=== PATIENT | male | born 1975 | race Caucasian/White ===

== ENCOUNTER 2016-07-25 04:53 | Observation (INO) | payer BC ==
[2016-07-25] MEDS ORDERED: Ondansetron 4 MG/2 ML SDV IVPUSH ONE (05:08)
[2016-07-25] MEDS ORDERED: Sodium Chloride 0.9% 1,000 ML IV ONE (05:09)
[2016-07-25] MEDS ORDERED: Ketorolac 30 MG/ML SDV IVPUSH ONE (05:09)
--- NOTE | 2016-07-25 05:23 | EDM.PDOC ---
ED HPI Trauma - General Chief Complaint: Lower Extremity Injury/Pain Stated Complaint: PAIN IN RIGHT FOOT Time Seen by Provider: 07/25/16 05:05 - History of Present Illness INITIAL COMMENTS - FREE TEXT/NARRATIVE: HISTORY AND PHYSICAL: History of present illness: Patient's a 40-year-old white male patient rates her pain swelling and redness to his right foot with red streaking proximal leg he denies fever chills he denies any known trauma denies nausea vomiting or other concerns Review of systems: As per history of present illness and below otherwise all systems reviewed and negative. Past medical history: As per history of present illness and as reviewed below otherwise noncontributory. Surgical history: As per history of present illness and as reviewed below otherwise noncontributory. Social history: No reported history of drug or alcohol abuse. Family history: As per history of present illness and as reviewed below otherwise noncontributory. Physical exam: HEENT: Atraumatic, normocephalic, pupils reactive, negative for conjunctival pallor or scleral icterus, mucous membranes moist, throat clear, neck supple, nontender, trachea midline. Lungs: Clear to auscultation, breath sounds equal bilaterally, chest nontender. Heart: S1S2, regular, negative for clicks, rubs, or JVD. Abdomen: Soft, nondistended, nontender. Negative for masses or hepatosplenomegaly. Negative for costovertebral tenderness. Pelvis: Stable nontender. Genitourinary: Deferred. Rectal: Deferred. Extremities: Patient's moderate swelling and erythema over the dorsal aspect of his right foot with some descending lymphangitis noted proximally to be distal third of his right leg neurovascular exam CMS is unremarkable this is warm to the touch Neuro: Awake, alert, oriented. Cranial nerves II through XII unremarkable. Cerebellum unremarkable. Motor and sensory unremarkable throughout. Exam nonfocal. Diagnostics: CBC CMP blood culture x2 x-ray right foot/tib-fib Therapeutics: Normal saline 1 L bolus vancomycin 1 g IV Impression: #1 cellulitis with ascending lymphangitis Definitive disposition and diagnosis as appropriate pending reevaluation and review of above. Allergies/ADRs: Allergies No Known Allergies Allergy (Verified 07/25/16 04:57) Home Medications: Ambulatory Orders . [No Known Home Meds] 07/25/16 [Confirmed 07/25/16] Past Medical History HEENT History: Reports: None Cardiovascular History: Reports: None Respiratory History: Reports: None Neurological History: Reports: None - Infectious Disease History Infectious Disease History: Reports: None - Past Surgical History HEENT Surgical History: Reports: None Cardiovascular Surgical History: Reports: None Social & Family History - Tobacco Use Smoking Status *Q: Never Smoker Second Hand Smoke Exposure: No Review of Systems - Review of Systems Review Of Systems: ROS reveals no pertinent complaints other than HPI. Trauma Exam - Physical Exam Exam: See Below (See dictation) Course - Vital Signs Last Recorded V/S: Last Vital Signs Temp 36.4 C 07/25/16 04:57 Pulse 89 07/25/16 06:00 Resp 17 07/25/16 06:00 BP 119/78 07/25/16 06:00 Pulse Ox 96 07/25/16 06:00 - Orders/Labs/Meds Orders: Active Orders 24 hr Category Date Time Status Foot Comp Min 3V Rt [CR] Stat Exams 07/25/16 05:05 Taken Tibia Fibula Rt [CR] Stat Exams 07/25/16 05:06 Taken CULTURE BLOOD [BC] Stat Lab 07/25/16 05:15 Received CULTURE BLOOD [BC] Stat Lab 07/25/16 05:30 Received Vancomycin [Vancocin] 1 gm Med 07/25/16 05:08 Active Sodium Chloride 0.9% [Normal Saline] 250 ml IV ONETIME Medication Orders Vancomycin HCl 1 gm/ Sodium (Chloride) 250 mls @ 166 mls/hr IV ONETIME ONE Stop: 07/25/16 06:38 Last Admin: 07/25/16 05:30 Dose: 166 mls/hr Labs: Laboratory Tests 07/25/16 07/25/16 Range/Units 05:16 05:16 WBC 9.48 (4.0-11.0) K/uL RBC 4.48 L (4.50-5.90) M/uL Hgb 13.4 (13.0-17.0) g/dL Hct 39.9 (38.0-50.0) % MCV 89.1 (80.0-98.0) fL MCH 29.9 (27.0-32.0) pg MCHC 33.6 (31.0-37.0) g/dL RDW Std Deviation 39.8 (28.0-62.0) fl RDW Coeff of Keiko 13 (11.0-15.0) % Plt Count 155 (150-400) K/uL MPV 10.10 (7.40-12.00) fL Neut % (Auto) 73.3 (48.0-80.0) % Lymph % (Auto) 12.9 L (16.0-40.0) % [place] % (Auto) 13.2 (0.0-15.0) % Eos % (Auto) 0.4 (0.0-7.0) % Baso % (Auto) 0.2 (0.0-1.5) % Neut # 7.0 H (1.4-5.7) K/uL Lymph # 1.2 (0.6-2.4) K/uL [place] # 1.3 H (0.0-0.8) K/uL Eos # 0.0 (0.0-0.7) K/uL Baso # 0.0 (0.0-0.1) K/uL Nucleated RBC % 0.0 /100WBC Nucleated RBCs # 0 K/uL Sodium 137 (136-146) mmol/L Potassium 3.8 (3.5-5.1) mmol/L Chloride 103 (98-110) mmol/L Carbon Dioxide 23 (21-31) mmol/L BUN 9 (6.0-23.0) mg/dL Creatinine 1.0 (0.6-1.5) mg/dL Est Cr Clr Drug Dosing 109.93 mL/min Estimated GFR (MDRD) > 60.0 ml/min Glucose 124 H (60-110) mg/dL Uric Acid 5.1 (2.1-7.4) mg/dL Calcium 9.1 (8.8-10.8) mg/dL Total Bilirubin 0.9 (0.1-1.5) mg/dL AST 33 (5-40) IU/L ALT 36 (8-54) IU/L Alkaline Phosphatase 78 (40-150) Total Protein 8.0 (6.0-8.0) g/dL Albumin 4.0 (3.5-5.0) g/dL Globulin 4.0 H (2.0-3.5) g/dL Albumin/Globulin Ratio 1.0 L (1.3-2.8) Meds: Medications Generic Name Dose Route Start Last Admin Trade Name Freq PRN Reason Stop Dose Admin Vancomycin HCl 1 gm/ Sodium 250 mls @ 166 mls/hr 07/25/16 05:08 07/25/16 05: 30 Chloride IV 07/25/16 06:38 166 mls/hr ONETIME ONE Administration Discontinued Medications Generic Name Dose Route Start Last Admin Trade Name Shelby PRN Reason Stop Dose Admin Sodium Chloride 1,000 mls @ 999 mls/hr 07/25/16 05:09 07/25/16 05:24 Normal Saline IV 07/25/16 06:09 999 mls/hr .Bolus ONE Administration Ketorolac Tromethamine 30 mg 07/25/16 05:09 07/25/16 05:26 Toradol IVPUSH 07/25/16 05:10 30 mg ONETIME ONE Administration Ondansetron HCl 4 mg 07/25/16 05:08 07/25/16 05:26 Zofran IVPUSH 07/25/16 05:09 4 mg ONETIME ONE Administration Departure - Departure Time of Disposition: 06:12 Disposition: Admitted As Inpatient 68 Condition: good Clinical Impression: Cellulitis, Ascending lymphangitis Forms: ED Department Discharge - My Orders Last 24 Hours: My Active Orders 07/25/16 05:05 Foot Comp Min 3V Rt [CR] Stat 07/25/16 05:06 Tibia Fibula Rt [CR] Stat 07/25/16 05:08 Vancomycin [Vancocin] 1 gm Sodium Chloride 0.9% [Normal Saline] 250 ml IV ONETIME 07/25/16 05:15 CULTURE BLOOD [BC] Stat 07/25/16 05:30 CULTURE BLOOD [BC] Stat - Assessment/Plan Last 24 Hours: My Active Orders 07/25/16 05:05 Foot Comp Min 3V Rt [CR] Stat 07/25/16 05:06 Tibia Fibula Rt [CR] Stat 07/25/16 05:08 Vancomycin [Vancocin] 1 gm Sodium Chloride 0.9% [Normal Saline] 250 ml IV ONETIME 07/25/16 05:15 CULTURE BLOOD [BC] Stat 07/25/16 05:30 CULTURE BLOOD [BC] Stat
[2016-07-25 05:46] LABS: CHLORIDE,CL 103 mmol/L (98-110); SODIUM,NA 137 mmol/L (136-146)
--- NOTE | 2016-07-25 11:06 | PCM.HP ---
H&P History of Present Illness - General Admit Problem/Dx: Admission Diagnosis/Problem Admission Diagnosis/Problem Cellulitis - History of Present Illness Initial Comments - Free Text/Narative: 40 yo male who presents with a two day history of redness and swelling of the dorsum of his right foot. He reports that he has been fatigued from extra hours at work. He wears slip on boots and reports his socks are always dry. He denies any resent trauma or foot pain. He was evaluated in the ED. Foot x- rays report no acute osseous injuries. ED physician referred for observation. Right Feet Pain Score (Numeric/FACES): 3 - Related Data Allergies/Adverse Reactions: Allergies Allergy/AdvReac Type Severity Reaction Status Date / Time No Known Allergies Allergy Verified 07/25/16 04:57 Home Medications: Home Meds . [No Known Home Meds] 07/25/16 [History] Past Medical History HEENT History: Reports: None Cardiovascular History: Reports: None Respiratory History: Reports: None Neurological History: Reports: None - Infectious Disease History Infectious Disease History: Reports: None - Past Surgical History HEENT Surgical History: Reports: None Cardiovascular Surgical History: Reports: None Social & Family History - Tobacco Use Smoking Status *Q: Never Smoker Second Hand Smoke Exposure: No H&P Review of Systems - Review of Systems: Review Of Systems: See Below General: Reports: no symptoms HEENT: Reports: no symptoms Pulmonary: Reports: no symptoms Cardiovascular: Reports: no symptoms Gastrointestinal: Reports: No symptoms Genitourinary: Reports: no symptoms Musculoskeletal: Reports: no symptoms Skin: Reports: no symptoms Psychiatric: Reports: no symptoms Neurological: Reports: no symptoms Hematologic/Lymphatic: Reports: no symptoms Immunologic: Reports: no symptoms Exam - Exam Exam: See Below - Vital Signs Vital Signs: Last Vital Signs Temp 36.3 C 07/25/16 06:38 Pulse 78 07/25/16 08:08 Resp 18 07/25/16 08:08 BP 116/78 07/25/16 08:08 Pulse Ox 98 07/25/16 08:08 Weight: 125.2 kg - Exam General: alert, oriented HEENT: Conjunctiva clear, Mucosa moist & pink Lungs: Clear to auscultation, Normal respiratory effort Cardiovascular: regular rate, regular rhythm Abdomen: normal bowel sounds, soft Extremities: other (+1 edema of dorsum of foot with erythema extending to above anterior ankle. tattoo of leg makes it difficult to determine proximal border of erythema) - Patient Data Result Diagrams: 07/25/16 05:16 07/25/16 05:16 *Q Meaningful Use (ADM) - VTE *Q VTE Criteria *Q: - Stroke *Q Stroke Criteria *Q: - AMI *Q AMI Criteria *Q: Problem List Initiated/Reviewed/Updated: Yes Orders Last 24hrs: Active Orders 24 hr Category Date Time Status Intake and Output [RC] QSHIFT Care 07/25/16 10:59 Ordered Oxygen Therapy [RC] PRN Care 07/25/16 10:59 Ordered Up ad Ev [RC] ASDIRECTED Care 07/25/16 10:59 Ordered VTE/DVT Education [RC] PER UNIT ROUTINE Care 07/25/16 10:59 Ordered Vital Signs [RC] Q4H Care 07/25/16 10:59 Ordered Regular Diet [DIET] Diet 07/25/16 Breakfast Active Venous Doppler Lwr Ext Rt [US] Routine Exams 07/25/16 10:58 Ordered BASIC METABOLIC PANEL,BMP [CHEM] AM Lab 07/26/16 05:11 Ordered CBC W/O DIFF,HEMOGRAM [HEME] AM Lab 07/26/16 05:11 Ordered Enoxaparin [Lovenox] Med 07/26/16 09:00 Ordered 40 mg SUBCUT DAILY Vancomycin Pharmacy to Dose [Pharmacy to Dose - Med 07/25/16 11:00 Ordered Vancomycin] 1 dose .XX ASDIRECTED Resuscitation Status Routine Resus Stat 07/25/16 10:59 Ordered Medication Orders Vancomycin HCl (Pharmacy To Dose - Vancomycin) 1 dose .XX ASDIRECTED MARTHA Assessment/Plan Comment:: 40 yo male admitted for right foot cellulitis. Treating with vancomycin
[2016-07-26 07:05] LABS: CHLORIDE,CL 104 mmol/L (98-110); SODIUM,NA 139 mmol/L (136-146)
[2016-07-26] MEDS ORDERED: Enoxaparin 40 MG/0.4 ML Syringe SUBCUT SCH (09:00)
[2016-07-26 11:47] VITALS: BP 112/69
--- NOTE | 2016-07-26 11:55 | PCM.DCSUM1 ---
Discharge Summary - Discharge Data Discharge Date: 07/26/16 Discharge Disposition: Home, Self-Care 01 Condition: Good - Patient Summary/Data Hospital Course: 40 yo male admitted with right foot cellulitis. He was treated with vancomycin and watched overnight. This morning he has improvement in the erythema and edema of the foot. Foot x-ray and leg dopplars were negative. Today he is requesting discharge. He was sent home with Bactrim DS BID for five days. He wants to schedule follow up himself for his PCP at home for later this week. - Patient Instructions Diet: Regular Diet as Tolerated - Discharge Plan Prescriptions/Med Rec: Sulfamethoxazole/Trimethoprim [Bactrim Ds Tablet] 1 each PO BID #10 tablet Home Medications: Home Meds Sulfamethoxazole/Trimethoprim [Bactrim Ds Tablet] 1 each PO BID #10 tablet 07/26 [Rx] Referrals: PCP,None [Primary Care Provider] - - Patient Data Vitals - Most Recent: Last Vital Signs Temp 37.1 C 07/26/16 11:46 Pulse 83 07/26/16 11:46 Resp 18 07/26/16 11:46 BP 112/69 07/26/16 11:46 Pulse Ox 96 07/26/16 11:46 Weight - Most Recent: 125.2 kg I&O - Last 24 hours: Intake & Output 07/25/16 07/26/16 07/26/16 22:59 06:59 14:59 Intake Total 1320 1150 Output Total 920 1450 Balance 400 -300 Lab Results - Last 24 hrs: Laboratory Results - last 24 hr 07/26/16 07/26/16 Range/Units 06:24 06:24 WBC 6.07 (4.0-11.0) K/uL RBC 4.08 L (4.50-5.90) M/uL Hgb 12.0 L (13.0-17.0) g/dL Hct 37.0 L (38.0-50.0) % MCV 90.7 (80.0-98.0) fL MCH 29.4 (27.0-32.0) pg MCHC 32.4 (31.0-37.0) g/dL RDW Std Deviation 41.8 (28.0-62.0) fl RDW Coeff of Keiko 13 (11.0-15.0) % Plt Count 156 (150-400) K/uL MPV 10.00 (7.40-12.00) fL Nucleated RBC % 0.0 /100WBC Nucleated RBCs # 0 K/uL Sodium 139 (136-146) mmol/L Potassium 4.1 (3.5-5.1) mmol/L Chloride 104 (98-110) mmol/L Carbon Dioxide 28 (21-31) mmol/L BUN 8 (6.0-23.0) mg/dL Creatinine 0.9 (0.6-1.5) mg/dL Est Cr Clr Drug Dosing 122.15 mL/min Estimated GFR (MDRD) > 60.0 ml/min Glucose 101 (60-110) mg/dL Calcium 8.4 L (8.8-10.8) mg/dL Med Orders - Current: Current Medications Enoxaparin Sodium (Lovenox) 40 mg SUBCUT DAILY [facility] Last Admin: 07/26/16 10:00 Dose: 40 mg Vancomycin HCl 1,250 mg/ (Sodium Chloride) 250 mls @ 166.667 mls/hr IV Q8H [facility] Last Admin: 07/26/16 05:13 Dose: 167 mls/hr Vancomycin HCl (Pharmacy To Dose - Vancomycin) 1 dose .XX ASDIRECTED [facility] Discontinued Medications Vancomycin HCl 1 gm/ Sodium (Chloride) 250 mls @ 166 mls/hr IV ONETIME ONE Stop: 07/25/16 06:38 Last Admin: 07/25/16 05:30 Dose: 166 mls/hr Sodium Chloride (Normal Saline) 1,000 mls @ 999 mls/hr IV .Bolus ONE Stop: 07/25/16 06:09 Last Admin: 07/25/16 05:24 Dose: 999 mls/hr Ketorolac Tromethamine (Toradol) 30 mg IVPUSH ONETIME ONE Stop: 07/25/16 05:10 Last Admin: 07/25/16 05:26 Dose: 30 mg Ondansetron HCl (Zofran) 4 mg IVPUSH ONETIME ONE Stop: 07/25/16 05:09 Last Admin: 07/25/16 05:26 Dose: 4 mg *Q Meaningful Use (DIS) - VTE *Q VTE Criteria *Q: - Stroke *Q Stroke Criteria *Q: - AMI *Q AMI Criteria *Q:
--- NOTE | 2016-07-26 21:13 | CR ---
EXAM DATE: 07/25/16 PATIENT'S AGE: 40 Patient: NOEL BLACKWELL Facility: [place], [place] Site . Site : 1975 Study: XRay Extremity Right [id number]/12/2017 5:55:39 AM Ordering Physician: Sharon Haynes Final Report: INDICATION: foot pain and swelling, redness TECHNIQUE: Tibia-Fibula radiograph 2 views right on 3 films COMPARISON: None FINDINGS: Bones: Alignment is normal. No acute fractures or aggressive bone lesions identified. Joint spaces: The visualized knee and ankle joints are unremarkable. Soft tissues: Mild diffuse subcutaneous edema noted in the distal calf and ankle. No radiopaque foreign bodies are identified. IMPRESSION: 1. No acute osseous injuries are noted. Dictated by: Marcelo Myers MD @ 07/25/2016 06:00:23 (Electronic Signature) Report Signed by Proxy and Original Signed Document filed in the Medical Record. ADDIS
--- NOTE | 2016-07-26 21:14 | CR ---
EXAM DATE: 07/25/16 PATIENT'S AGE: 40 Patient: NOEL BLACKWELL Facility: [place], [place] Site . Site : 1975 Study: XRay Extremity Right [id number]/12/2017 5:56:05 AM Ordering Physician: Sharon Haynes Final Report: INDICATION: Foot redness and swelling. TECHNIQUE: Foot radiograph 3 views right COMPARISON: None FINDINGS: Bones: Alignment is normal. No acute fractures or aggressive osseous lesions seen. A bipartite medial sesamoid bone is noted. Joint spaces: The visualized hindfoot, midfoot, and forefoot joints are unremarkable in appearance. Soft tissues: Mild subcutaneous edema is present surrounding the ankle and hindfoot. Soft tissue edema and swelling is also noted along the dorsum of the midfoot. No radiopaque foreign bodies are noted. IMPRESSION: 1. No acute osseous injuries are identified. Dictated by Marcelo Myers MD @ 07/25/2016 6:02:07 AM Dictated by: Marcelo Myers MD @ 07/25/2016 06:02:18 (Electronic Signature) MReport Signed by Proxy and Original Signed Document filed in the Medical Record. ADDIS
--- NOTE | 2016-07-26 21:27 | US ---
EXAM DATE: 07/25/16 PATIENT'S AGE: 40 Patient: NOEL BLACKWELL Facility: [place], [place] Site . Site : 1975 Study: US Extremity [id number]/12/2017 1:29:25 PM Ordering Physician: Eddie Gold Final Report: INDICATION: Right leg red and swollen above the ankle. TECHNIQUE: Ultrasound venous duplex lower right extremity. Compression venous exam was performed using ferreira-scale, color Doppler, and spectral Doppler imaging. COMPARISON: None. FINDINGS: Sonographic imaging demonstrates the right common femoral, deep femoral, superficial femoral, popliteal, posterior tibial, anterior tibial and greater saphenous to be fully compressible with normal color Doppler blood flow. Remainder negative. IMPRESSION: Normal right lower extremity venous ultrasound without evidence of DVT. Dictated by Uche Suárez MD @ Jul 25 2016 1:58PM (Electronic Signature) Report Signed by Proxy and Original Signed Document filed in the Medical Record. ADDIS
== END 2016-07-26 15:50 | disposition home or self-care (01) ==
LOC: MW.ED 04:53 → MW.MS 06:13
PROVIDERS: ADMIT Internal Medicine; ATTEND Internal Medicine
DX: L03.115 Cellulitis of right lower limb (principal); I89.1 Lymphangitis
CPT/HCPCS: 36415; 73590; 73630; 80048; 80053; 80202; 84550; 85025; 85027; 87040; 93971; 96365; 96366; 96372; 96375; 99284; G0378; J1650; J1885; J2405; J3370; J7040; J7050; 99283